=== PATIENT | female | born 1950 | race Two or more races ===

== ENCOUNTER 2025-01-12 20:51 | Emergency (ER) | payer OTHER ==
[~2025-01-12] VITALS: Ht 162.6 cm; Wt 100.4 kg
[2025-01-12] MEDS: ALBUTEROL SULF 2.5 MG/0.5ML(0.5%) NEB SOLN NEB ONE (21:16)
[2025-01-12] MEDS: IPRATROPIUM BROM 0.5 MG/2.5ML INH SOL NEB ONE (21:16)
[2025-01-12 21:20] LABS: Basophils # (auto) 0 10 ^3/uL (0-0.2); Basophils % (auto) 0.2 % (0.0-2.0); Eosinophils # (auto) 0 10 ^3/uL (0-0.8); Eosinophils % (auto) 0.4 % (0.0-7.0); Hematocrit 42.4 % (36.0-46.0); Hemoglobin 13.8 g/dL (12.2-16.2); Lymphocytes # (auto) 1.2 10 ^3/uL (0.4-5.4); Lymphocytes % (auto) 20.6 % (10.0-50.0); Mean Corpuscular Hemoglobin 29.4 pg (28.0-32.0); Mean Corpuscular Hgb Conc. 32.6 g/dL (32.0-36.0); Mean Corpuscular Volume 90.2 fL (80.0-100.0); Monocytes # (auto) 0.5 10 ^3/uL (0-1.3); Monocytes % (auto) 7.9 % (0.0-12.0); Neutrophils # (auto) 4.3 10 ^3/uL (1.6-8.6); Neutrophils % (auto) 70.9 % (37.0-80.0); Platelet Count (auto) 268 10^3/uL (140-450); Red Cell Distribution Width 13.9 % (11.8-14.3)
[2025-01-12 21:39] LABS: Albumin 4.7 g/dL (3.2-4.8); Anion Gap 6 (5-15); Aspartate Aminotransferase 37 U/L (13-40); BUN/Creatinine Ratio 28.6 (10.0-20.0); Blood Urea Nitrogen 18 mg/dL (9-23); Calcium 9.2 mg/dL (8.7-10.4); Carbon Dioxide 28 mmol/L (20-31); Chloride 105 mmol/L (98-107); Lipase 39 U/L (12-53); Potassium 4.6 mmol/L (3.5-5.1); Sodium 139 mmol/L (136-145); Total Protein 7.4 g/dL (5.7-8.2)
[2025-01-12 21:40] LABS: Bilirubin, Total 0.5 mg/dL (0.2-1.0)
--- NOTE | 2025-01-12 21:42 | DVH ---
CHEST RADIOGRAPH Indication: Shortness of breath Technique: Single frontal view of the chest was obtained COMPARISON: None FINDINGS: Lines and Tubes: None Lungs: Clear Pleura: No effusion. No pneumothorax. Cardiomediastinal contours: Unremarkable Bones: Unremarkable Marked elevation of the right hemidiaphragm which may reflect eventration. IMPRESSION: 1. No acute disease. 2. Marked elevation of the right hemidiaphragm which may reflect eventration.
[2025-01-12 21:47] LABS: Alanine Aminotransferase 65 U/L (7-40); Alkaline Phosphatase 144 U/L (46-116); Glucose 108 mg/dL (74-106)
[2025-01-12] MEDS: DexAMETHasone SOD PHOS 10MG/1ML VIAL INJ IV ONE (23:54)
[2025-01-13] MEDS: IOHEXOL 350 MG/ML 100ML IJ ONE (00:25)
--- NOTE | 2025-01-13 00:44 | DVH ---
CTA Chest with intravenous contrast INDICATION: Elevated D-dimer Comparison Study: None TECHNIQUE: Multidetector spiral CTA of the chest was performed of the chest with intravenous contrast . PULMONARY ANGIOGRAPHY PROTOCOL was utilized using a bolus-tracking technique centered on the main p ulmonary artery. Axial, coronal and sagittal multiplanar and MIP reformats were performed. Radiation Dose : 1. Chest: CTDI volume is 28 mGy. Dose-length product is 1025 mGy*cm The dose indicators for CT are the volume Computed Tomography (CT) Dose Index (CTDIvol) and the Dose Length Product (DLP), and are measured in units of mGy and mGy-cm, respectively. These indicators are not patient dose, but values generated from the CT scanner acquisition factors. The report includes radiation exposure data for exposures received during this examination. Findings: Pulmonary artery: No evidence of pulmonary embolism seen to the level of the segmental arteries no dilation of the pulm onary trunk. No right heart strain Lower neck: Within normal limits. Lungs: Within normal limits.. Heart/Vascular Structures: Within normal limits... Lymph Nodes: No adenopathy Pleura: Severely elevated right hemidiaphragm causing right basilar atelectasis well as mass effect on the pulmonary vasculature and mediastinum.. Musculoskeletal: Within normal limits... Body wall: Within normal limits... Upper abdomen: Distended gallbladder. 1 cm hypodense lesion in the left hepatic lobe. IMPRESSION: No evidence of pulmonary embolism. No aortic dissection or aneurysm. Severely elevated right hemidiaphragm causing right basilar atelectasis and mass effect on the right pulmonary vasculature and mediastinum.
[2025-01-13 00:57] LABS: Urine Bacteria None Seen /hpf (None Seen)
[2025-01-13 01:08] LABS: Urine Blood Negative /uL (Negative); Urine Clarity Clear (Clear); Urine Color Yellow (Yellow); Urine Mucus FEW (None Seen); Urine Protein, UAD TRACE (Negative); Urine Specific Gravity 1.044 (1.001-1.035); Urine Squamous Epithelial Cell FEW /hpf (<5); Urine Urobilinogen Normal (Negative); Urine WBC 2 /HPF (0-5); Urine pH 5.5 (5.0-9.0)
--- NOTE | 2025-01-13 01:10 | ED.PDOC ---
SOB-HPI HPI Comments This patient is a pleasant but morbidly obese 74-year-old female who arrives to the ED today via EMS due to complaints of shortness a breath and chest pain concerns for the past week. Patient states she has had difficult time breathing with intermittent events of chest pain. Patient denies any history of pulmonary or cardiac concerns. Patient fever nausea or vomiting. Patient was hypertensive on arrival. Chief Complaint: Shortness of Breath Time Seen by MD: 20:54 Reviewed notes: Nurses Notes, [facility] Compliance Coordinator Notes Information Source: Patient, Emergency Med Personnel Mode of Arrival: EMS Severity: Moderate Timing: Days Duration: Since onset Context: At Rest PE Risk Factors: None History of: Asthma Prehospital treatment: 12 Lead EKG, Treatment Modifying Factors: Nothing Associated Signs and Symptoms: Cough Quality: Sharp Past Medical History PAST MEDICAL HISTORY: Denies Surgical History: Denies all surgeries FOOD SAMPLER History: No Pertinent FOOD SAMPLER History Family History Family History: Reviewed,noncontributory to illness, No family hx of Cancer, No family hx of DM, No family hx of Heart annette, No family hx of HTN, No family hx ofKidney annette, No family hx of Liver annette, No family hx of Lung annette, No family hx of Stroke Social History Smoker: Non-Smoker Alcohol: Denies ETOH Use Drugs: Denies Drug Use Lives In: Home Constitutional: reports: weakness; denies: chills, diaphoresis, fatigue, fever, malaise, sweats, others EENTM: denies: blurred vision, double vision, ear bleeding, ear discharge, ear drainage, ear pain, ear ringing, eye pain, eye redness, hearing loss, mouth pain, mouth swelling, nasal discharge, nose bleeding, nose congestion, nose pain, photophobia, tearing, throat pain, throat swelling, voice changes, others Respiratory: reports: shortness of breath; denies: cough, hemoptysis, orthopnea, SOB at rest, SOB with excertion, stridor, wheezing, others Cardiovascular: reports: chest pain; denies: dizzy spells, diaphoresis, Dyspnea on exertion, edema, irregular heart beat, left arm pain, lightheadedness, palpitations, PND, syncope, others Gastrointestinal: denies: abdomen distended, abdominal pain, blood streaked bowels, constipated, diarrhea, dysphagia, difficulty swallowing, hematemesis, melena, nausea, poor appetite, poor fluid intake, rectal bleeding, rectal pain, vomiting, others Genitourinary: denies: abnormal vagina bleeding, burning, dyspareunia, dysuria, flank pain, frequency, hematuria, incontinence, pain, , vagina discharge, urgency, others Neurological: denies: dizziness, fainting, headache, left sided numbness, left sided weakness, numbness, paresthesia, pre-existing deficit, right sided numbness, right sided weakness, seizure, speech problems, tingling, tremors, weakness, others Musculoskeletal: denies: back pain, gout, joint pain, joint swelling, muscle pain, muscle stiffness, neck pain, others Integumetry: denies: bruises, change in color, change in hair/nails, dryness, laceration, lesions, lumps, rash, wounds, others Allergic/Immunocompromised: denies: Difficulty Healing, Frequent Infections, Hives, Itching, others Hematologic/Lymphatic: denies: anemia, blood clots, easy bleeding, easy bruising, swollen glands, others Endocrine: denies: excessive hunger, excessive sweating, excessive thirst, excessive urination, flushing, intolerance to cold, intolerance to heat, unexplained weight gain, unexplained weight loss, others Psychiatric: denies: anxiety, bipolar disorder, depression, hopeless, panic disorder, schizophrenia, sleepless, suicidal, others Physical Exam General Appearance: Moderate Distress ([id number] distress due to shortness a breath and chest pain concerns. Patient appears to be in poor overall health.), Normal HEENT: Normal ENT Inspection, Pharynx Normal, TMs Normal Neck: Full Range of Motion, Non-Tender, Normal, Normal Inspection Respiratory: Chest Non-Tender, No Accessory Muscle Use, No Respiratory Distress, Other ( Relatively unremarkable auscultation bilateral lung shook. Patient displayed shallow breathing.) Cardiovascular: No Edema, No JVD, No Murmur, No Gallop, Normal Peripheral Pulses, Regular Rate/Rhythm Breast Exam: Deferred Gastrointestinal: No Organomegaly, Non Tender, No Pulsatile Mass, Normal Bowel Sounds, Soft Genitalia: Deferred Pelvic: Deferred Rectal: Deferred Extremities: No calf tenderness, Normal capillary refill Neurologic: Alert, No Motor Deficits, Normal Affect, Normal Mood, No Sensory Deficits Cerebellar Function: NOT DONE Reflexes: NOT DONE Skin: Dry, Normal Color, Warm Lymphatic: No Adenopathy Was a procedure done? Was a procedure done?: No Differential Dx Differential Diagnosis: Anxiety, Asthma, Bronchitis, CHF, COPD, Pneumonia, Pulmonary Embolism, Respiratory Distress, URI X-Ray, Labs, Meds, VS Vital Signs Date Time Temp Pulse Resp B/P (MAP) Pulse Ox O2 Delivery O2 Flow Rate FiO2 01/13/25 01:20 99.0 76 22 129/56 (80) 94 99.0 01/12/25 23:55 98.1 77 18 145/92 (109) 95 98.1 01/12/25 23:55 77 18 95 Nasal Cannula 2.0 01/12/25 21:12 20 97 Nasal Cannula* 2 28 01/12/25 21:01 98.0 75 20 155/72 (99) 100 98.0 01/12/25 20:54 75 Lab Test 01/12/25 23:59 01/12/25 21:55 01/12/25 21:06 Range/Units Urine Color Pending Urine Clarity Pending Urine pH Pending Urine Specific Clifford Pending Urine Protein Pending Urine Ketones Pending Urine Blood Pending Urine Nitrite Pending Urine Bilirubin Pending Urine Urobilinogen Pending Urine Leukocyte Esterase Pending Urine RBC Pending Urine Microscopic WBC Pending Urine Squamous Epithelial Cells Pending Urine Bacteria Pending Urine Glucose Pending Troponin I High Sensitivity < 3 L < 3 L </=34 ng/L White Blood Count 6.0 4.4-10.8 10^3/uL Red Blood Count 4.70 4.0-5.20 10^6/uL Hemoglobin 13.8 12.2-16.2 g/dL Hematocrit 42.4 36.0-46.0 % Mean Corpuscular Volume 90.2 80.0-100.0 fL Mean Corpuscular Hemoglobin 29.4 28.0-32.0 pg Mean Corpuscular Hemoglobin Concent 32.6 32.0-36.0 g/dL Red Cell Distribution Width 13.9 11.8-14.3 % Platelet Count 268 140-450 10^3/uL Mean Platelet Volume 7.6 6.9-10.8 fL Neutrophils (%) (Auto) 70.9 37.0-80.0 % Lymphocytes (%) (Auto) 20.6 10.0-50.0 % Monocytes (%) (Auto) 7.9 0.0-12.0 % Eosinophils (%) (Auto) 0.4 0.0-7.0 % Basophils (%) (Auto) 0.2 0.0-2.0 % Neutrophils # (Auto) 4.3 1.6-8.6 10 ^3/uL Lymphocytes # (Auto) 1.2 0.4-5.4 10 ^3/uL Monocytes # (Auto) 0.5 0-1.3 10 ^3/uL Eosinophils # (Auto) 0 0-0.8 10 ^3/uL Basophils # (Auto) 0 0-0.2 10 ^3/uL Nucleated Red Blood Cells 0.0 % D-Dimer, Quantitative 0.66 H 0.0-0.49 mg/L FEU Sodium Level 139 136-145 mmol/L Potassium Level 4.6 3.5-5.1 mmol/L Chloride Level 105 98-107 mmol/L Carbon Dioxide Level 28 20-31 mmol/L Anion Gap 6 5-15 Blood Urea Nitrogen 18 9-23 mg/dL Creatinine 0.63 0.550-1.02 mg/dL Glomerular Filtration Rate Calc 93 >90 mL/min BUN/Creatinine Ratio 28.6 H 10.0-20.0 Serum Glucose 108 H 74-106 mg/dL Lactic Acid Level 0.6 0.4-2.0 mmol/L Calcium Level 9.2 8.7-10.4 mg/dL Total Bilirubin 0.5 0.2-1.0 mg/dL Aspartate Amino Transferase (AST) 37 13-40 U/L Alanine Aminotransferase (ALT) 65 H 7-40 U/L Alkaline Phosphatase 144 H 46-116 U/L B-Type Natriuretic Peptide 15.46 0-100 pg/mL Total Protein 7.4 5.7-8.2 g/dL Albumin 4.7 3.2-4.8 g/dL Lipase 39 12-53 U/L Current Medications Medications (Trade) Dose Ordered Sig/Maribel Route Start Time Stop Time Status Last Admin Albuterol (Ventolin Medneb) 5 mg ONCE ONCE NEB 01/12/25 21:00 01/12/25 21:01 DC 01/12/25 21:16 Ipratropium [place] (Atrovent Medneb) 0.5 mg ONCE ONCE NEB 01/12/25 21:00 5/15/25 21:01 DC 01/12/25 21:16 Dexamethasone Sodium Phosphate (Decadron Injection) 10 mg ONCE ONCE IV 01/12/25 21:00 01/12/25 21:01 DC 01/12/25 23:54 X-Ray, Labs, Meds, VS Comment All studies performed the ED were evaluated by me personally. Serum laboratories were unremarkable for any definitive systemic process.Patient has a have a mildly elevated D-dimer which led to a CT angio of the chest. While the chest x-ray was unremarkable for any acute disease, x-ray and CT confirmed a severely elevated right hemidiaphragm causing right basilar atelectasis and mass effect of the right pulmonary vasculature and mediastinum. Patient's EKG revealed a sinus rhythm with a rate of 75. Baseline wander in lead V1. VA interval 137 and QT interval of 388. I some concerns about the elevated hemidiaphragm and in his involvement in the shortness a breath concerns for the patient. Discussed the case with at [facility]. Advise that is I was concerned of the marked elevation of the right hemidiaphragm and its affect on shortness a breath concerns. Patient is currently running at 2 L of O2 and satting at 95%. Advised him of laboratory and all imaging findings. He agreed to accept the patient is a transfer. Patient will travel via [facility]. Transfer authorization number is [id number]. Time of 1ST Reevaluation: :28 Reevaluation 1ST: Improved Consultation: PCP, Pulmonary Patient Education/Counseling: Diagnosis, Treatment Family Education/Counseling: Diagnosis, Treatment Departure 1 Departure Time of Disposition: 01:28 Impression: Primary Impression: Acute respiratory distress Additional Impression: Elevated hemidiaphragm Disposition: 02 SHORT TERM HOSPITAL Condition: Stable Discharged With: Self Critical Care Note Critical Care Time?: No Stability Stability form required: No Heart Score Heart Score: Heart Score Response (Comments) Value History Slightly Suspicious 0 EKG Normal 0 Age >65 2 Risk Factors 1 or 2 risk factors 1 Troponin Normal limit 0 Total 3 SHRUTHI REDDY PAC January 13, 2025 01:10
[2025-01-13 04:26] VITALS: PULSE 75; RESP 16; O2SAT 93
[2025-01-13 04:40] VITALS: BP 128/64; PULSE 75; RESP 16; TEMP 97.9; O2SAT 93
--- NOTE | 2025-01-13 05:14 | ECG ---
[facility] Test Date: 2025-01-12 Test Time: 20:54:55 Pat Name: ANA MARQUES Department: ED Room: Gender: F Welder Journeyman: juventino : 1950 Requested By: SHRUTHI REDDY Order Number: [id number] Reading MD: Peter Morris Measurements Intervals [place] Rate: 75 P: 50 TN: 137 QRS: 25 QRSD: 92 T: 35 QT: 388 QTc: 434 Interpretive Statements Sinus rhythm Baseline wander in lead(s) V1 Electronically Signed On 01-14-2025 21:01:05 PDT by Peter Morris Please click the below link to view image of tracing.
== END 2025-01-13 01:25 | disposition short-term general hospital (02) ==
LOC: ER 20:51 → EDBD 20:51 → ER 01-13 01:25
DX: R06.03 Acute respiratory distress (principal); R79.89 Other specified abnormal findings of blood chemistry
CPT/HCPCS: 36415; 71045; 71275; 80053; 81001; 83605; 83690; 83880; 84484; 85025; 85379; 93005; 94640; 96374; 99285; J1100; Q9967